=== PATIENT | female | born 1985 | race Caucasian/White ===

== ENCOUNTER 2020-07-04 15:39 | Emergency (ER) | payer OTHER ==
[~2020-07-04] VITALS: Ht 154.9 cm; Wt 56.7 kg
[2020-07-04 17:27] VITALS: BP 144/79
== END 2020-07-04 17:27 | disposition home or self-care (01) ==
LOC: ER 15:39
DX: Z71.1 Person with feared health complaint in whom no diagnosis is made (principal); V43.62XA Car passenger injured in collision with other type car in traffic accident, initial encounter; Y93.89 Activity, other specified; Y92.89 Other specified places as the place of occurrence of the external cause; Y99.8 Other external cause status